=== PATIENT | female | born 1990 | race Caucasian/White ===

== ENCOUNTER 2021-07-17 22:18 | Emergency (ER) | payer SELFPAY ==
[~2021-07-17] VITALS: Ht 170.2 cm; Wt 82.0 kg
[2021-07-18 00:15] VITALS: BP 134/84
[2021-07-18] MEDS ORDERED: ACETAMINOPHEN 325MG TABLET PO ONE (00:30)
== END 2021-07-18 02:04 | disposition home or self-care (01) ==
LOC: ER 22:18
DX: R07.89 Other chest pain (principal); R06.02 Shortness of breath; Z20.822 Contact with and (suspected) exposure to COVID-19; Z98.890 Other specified postprocedural states
CPT/HCPCS: 71045; 81025; 93005; 99285; C9803; U0003; U0005